=== PATIENT | male | born 1990 | race Caucasian/White ===

== ENCOUNTER 2018-10-18 12:51 | Emergency (ER) | payer OTHER ==
[~2018-10-18] VITALS: Ht 200.6 cm; Wt 115.7 kg
== END 2018-10-18 13:58 | disposition home or self-care (01) ==
LOC: ED 12:51
DX: S13.4XXA Sprain of ligaments of cervical spine, initial encounter (principal); M54.6 Pain in thoracic spine; V89.2XXA Person injured in unspecified motor-vehicle accident, traffic, initial encounter; Y93.I9 Activity, other involving external motion; Y92.488 Other paved roadways as the place of occurrence of the external cause; Y99.8 Other external cause status

== ENCOUNTER 2024-11-30 16:52 | Emergency (ER) | payer OTHER ==
[~2024-11-30] VITALS: Ht 200.6 cm; Wt 120.2 kg
[2024-11-30] MEDS ORDERED: Ampicillin Sodium/Sulbactam 3 GM in SODIUM CHLORIDE 0.9% 100 ML IV ONE (17:50)
[2024-11-30] MEDS ORDERED: fentaNYL CITRATE 100 MCG/2 ML VIAL IV ONE (17:55)
[2024-11-30] MEDS ORDERED: Tdap Vaccine 0.5 ML SYR (Adult Vaccine) IM ONE (17:55)
[2024-11-30] MEDS ORDERED: SODIUM CHLORIDE 0.9% 1,000 ML IV ONE (17:55)
== END 2024-11-30 18:50 | disposition short-term general hospital (02) ==
LOC: ED 16:52
DX: S01.511A Laceration without foreign body of lip, initial encounter (principal); W54.0XXA Bitten by dog, initial encounter; Y93.89 Activity, other specified; Y92.89 Other specified places as the place of occurrence of the external cause; Y99.8 Other external cause status

== ENCOUNTER 2024-12-03 16:25 | Emergency (ER) | payer SELFPAY ==
[~2024-12-03] VITALS: Ht 200.6 cm; Wt 120.2 kg
[2024-12-03] MEDS ORDERED: Rabies Vaccine 1 ML VIAL IM ONE (16:55)
== END 2024-12-03 17:21 | disposition home or self-care (01) ==
LOC: ED 16:25
DX: S01.21XD Laceration without foreign body of nose, subsequent encounter (principal); S01.511D Laceration without foreign body of lip, subsequent encounter; Z23 Encounter for immunization; W54.0XXD Bitten by dog, subsequent encounter